=== PATIENT | male | born 1985 | race American Indian/Alaskan Native ===

== ENCOUNTER 2023-06-27 16:58 | Emergency (ER) | payer MEDICAID ==
[~2023-06-27] VITALS: Ht 177.8 cm; Wt 90.0 kg
[2023-06-27 17:06] VITALS: BP 134/77; PULSE 110; RESP 18; TEMP 98; O2SAT 9
== END 2023-06-27 19:04 | disposition home or self-care (01) ==
LOC: ER 16:59
DX: S90.32XA Contusion of left foot, initial encounter (principal); X58.XXXA Exposure to other specified factors, initial encounter; Y93.89 Activity, other specified; Y92.89 Other specified places as the place of occurrence of the external cause; Y99.8 Other external cause status
CPT/HCPCS: 73630; 99283

== ENCOUNTER 2023-12-20 03:16 | Emergency (ER) | payer MEDICAID ==
[~2023-12-20] VITALS: Ht 177.8 cm; Wt 86.4 kg
[2023-12-20 03:22] VITALS: BP 139/77; PULSE 97; RESP 18; TEMP 97.8; O2SAT 98
== END 2023-12-20 07:47 | disposition left against medical advice (07) ==
LOC: ER 03:17
DX: M25.571 Pain in right ankle and joints of right foot (principal); Z53.21 Procedure and treatment not carried out due to patient leaving prior to being seen by health care provider
CPT/HCPCS: 73610; 99281

== ENCOUNTER 2025-05-14 07:56 | Emergency (ER) | payer MEDICAID ==
[~2025-05-14] VITALS: Ht 177.8 cm; Wt 78.2 kg
[2025-05-14] MEDS ORDERED: LIDOcaine 1% W/epiNEPHrine 1:100,000 20ml vial SQ ONE (08:05)
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
[2025-05-14] MEDS: HYDROcodone/acetaminophen 5mg/325mg tablet PO ONE (08:35)
[2025-05-14] MEDS: TETanus/Pertussis (Acell)/Diphther VAC/PF (Tdap-Adult) 0.5ml syringe IMVAC ONE (08:37)
[2025-05-14] MEDS ORDERED: ampicillin/sulbac 3gm/NS 100ml 100 ML IV STA (08:48)
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
[2025-05-14 09:55] VITALS: TEMP 98.3
[2025-05-14] MEDS ORDERED: AMOX-117 PO (11:48)
[2025-05-14 11:57] VITALS: BP 127/86; PULSE 84; RESP 14; O2SAT 100
== END 2025-05-14 11:54 | disposition home or self-care (01) ==
LOC: ER 07:57
DX: S02.40DA Maxillary fracture, left side, initial encounter for closed fracture (principal); S01.81XA Laceration without foreign body of other part of head, initial encounter; G89.11 Acute pain due to trauma; W22.8XXA Striking against or struck by other objects, initial encounter; Y93.89 Activity, other specified; Y92.89 Other specified places as the place of occurrence of the external cause; Y99.8 Other external cause status
CPT/HCPCS: 12011; 70450; 70486; 90471; 90715; 99285; J7030; A6449

== ENCOUNTER 2025-05-26 13:22 | Emergency (ER) | payer MEDICAID ==
[~2025-05-26] VITALS: Ht 177.8 cm; Wt 77.3 kg
[2025-05-26 13:30] VITALS: BP 114/75; PULSE 97; RESP 16; TEMP 98.6; O2SAT 99
== END 2025-05-26 16:04 | disposition left against medical advice (07) ==
LOC: ER 13:22
DX: Z48.02 Encounter for removal of sutures (principal); Z53.21 Procedure and treatment not carried out due to patient leaving prior to being seen by health care provider